=== PATIENT | female | born 1965 | race Caucasian/White ===

== ENCOUNTER → 2019-02-24 | Outpatient (CLI) | payer OTHER ==
--- NOTE | 2019-02-24 15:01 | Diagnostic Imaging Report ---
PROCEDURE: MRI lumbar spine. TECHNIQUE: Multiplanar, multisequence MRI of the lumbar spine was performed without contrast. INDICATION: Low back pain. COMPARISON: No prior studies are available for comparison. FINDINGS: Curvature and alignment of the lumbar spine is normal. Vertebral body heights are maintained. The marrow signal intensity is unremarkable. No geographic marrow lesion or acute compression fracture is seen. There is some mild loss of height and signal intensity to the L5-S1 intervertebral disc compatible with degenerative disc disease. Remaining lumbar discs show fairly normal height and hydration. The conus is unremarkable at the L1-2 level. T12-L1: Central canal is widely patent. Neural foramina are patent. L1-2: Central canal and neural foramina are widely patent. L2-3: Central canal and neural foramina are widely patent. L3-4: There is mild ligamentous thickening and facet changes but central canal and neural foramina are widely patent. L4-5: Ligamentous thickening and facet hypertrophy is noted. There is broad-based disc/osteophyte complex indenting the ventral thecal sac. Moderate central canal stenosis is noted narrowing the canal to 7 mm AP. No neural foraminal stenosis is seen. L5-S1: Marked hypertrophic facet changes and ligamentous thickening is seen with prominent broad-based disc/osteophyte complex. This produces severe trefoil stenosis to the central canal. There is severe bilateral lateral recess stenosis. There is also mild bilateral neural foraminal stenosis. Paraspinous tissues are unremarkable. IMPRESSION: 1. Severe L5-S1 degenerative disc disease with severe central canal and bilateral lateral recess stenosis and mild bilateral neural foraminal stenosis. 2. Moderate central canal stenosis at L4-5 level, as described. 3. No acute compression fracture is detected. Dictated by: Dictated on workstation # [id number]
== END ==
LOC: RAD 13:35
PROVIDERS: ATTEND Family Medicine
DX: M51.37 Other intervertebral disc degeneration, lumbosacral region (principal); M48.07 Spinal stenosis, lumbosacral region
CPT/HCPCS: 72148

== ENCOUNTER → 2021-03-28 | Outpatient (CLI) | payer OTHER ==
--- NOTE | 2021-03-28 17:28 | Diagnostic Imaging Report ---
EXAMINATION: Right ankle 2 views HISTORY: ANKLE AND KNEE PAIN COMPARISON: None available. FINDINGS: There is no acute fracture, dislocation, or destructive osseous process. The joint spaces are normal. The soft tissues are normal. IMPRESSION: No acute osseous abnormality of the right ankle. Dictated by: Dictated on workstation # [id number]
--- NOTE | 2021-03-28 17:28 | Diagnostic Imaging Report ---
EXAM: Right knee radiograph. Exam date: 03/28/2021 COMPARISON: None. HISTORY: Right knee pain. TECHNIQUE: Two views of the right knee. FINDINGS: There is no acute fracture, dislocation, or destructive osseous process. There is minimal medial compartment joint space narrowing and small osteophytes. No significant joint effusion. Soft tissues are normal. IMPRESSION: Mild degenerative changes of the right knee without acute osseous abnormality. Dictated by: Dictated on workstation # [id number]
== END ==
LOC: RAD FS 16:54
PROVIDERS: ATTEND Family Medicine
DX: M17.11 Unilateral primary osteoarthritis, right knee (principal); M25.571 Pain in right ankle and joints of right foot
CPT/HCPCS: 73560; 73600

== ENCOUNTER 2022-03-07 16:36 | Emergency (ER) | payer OTHER ==
[2022-03-07] MEDS ORDERED: KETOROLAC 30 MG/ML VIAL IVP STA (17:02)
[2022-03-07] MEDS ORDERED: PREGABALIN 25 MG (LYRICA) CAPSULE PO STA (17:06)
--- NOTE | 2022-03-07 17:06 | ED General ---
General Chief Complaint: COVID19 Suspect/Confirmed Stated Complaint: CHILLS,RUNNING NOSE,SORE THROAT Nursing Triage Note: REPORTS WAS EXPOSED TO COVID WHILE ON VACATION AND NOW HAS BEEN SICK FOR THE PAST 4 DAYS WITH NASAL CONGESTION, HEADACHE, SORE THROAT, AND CHILLS. SHE ALSO STATES SHE IS WITHDRAWING FROM HER LYRICA BECAUSE SHE HAS NOT HAD IT IN 2 DAYS BC SHE IS [facility]IT[facility] Source of Information: Patient History of Present Illness Date Seen by Provider: Mar 07, 2022 Time Seen by Provider: 16:42 Initial Comments 57-year-old female presenting with complaints of thinking she may have COVID. She was exposed to family members that they will have COVID when she was in [place] last week. She states she has been sick for the last 3 to 4 days with nasal congestion, headache, sore throat, chills. She also has been having diarrhea. She also has not had her Lyrica for the last 2 or 3 days. She states that she ordered it on the but it has not arrived yet. She takes it for her fibromyalgia and sciatica. She takes 300 mg twice a day. She feels like she is going through withdrawal from that. She had called [facility] [place] where she gets her medications and they had advised her to go to the emergency department rather than trying to get her short supply of the medication. She states overall she just does not feel well. She denies having any nausea or vomiting. She has headache with general malaise. Timing/Duration: 3-4 Days Severity: Severe Modifying Factors: worse with Movement (activity makes her feel worse); improves with Rest (resting helps some but she still feels miserable) Associated Systoms: No Chest Pain; Cough; No Diaphoresis; Fever/Chills (chills with subjective fever), Headaches, Loss of Appetite, Malaise; No Nausea/Vomiting, No Rash, No Seizure; Shortness of Air; No Syncope; Weakness, Other (itching all over, diarrhea) Allergies and Home Medications Allergies Coded Allergies: No Known Drug Allergies (Unverified , 03/07/22) Patient Home Medication List Home Medication List Reviewed: Yes Pregabalin (Pregabalin) 300 Mg Capsule, 300 MG PO BID Prescribed by: PRISCILA STEPHENSON on 03/07/22 3156 Review of Systems Review of Systems Constitutional: chills, fever (subjective), malaise, weakness EENTM: nose congestion, throat pain; No ear pain, No vision loss, No epistaxis Respiratory: cough, short of breath; No stridor, No wheezing Cardiovascular: No chest pain Gastrointestinal: diarrhea; No nausea, No vomiting Genitourinary: No dysuria Musculoskeletal: other (chronic body aches and pains from Fibromyalgia and sciatica but feels it is worse currently) Skin: pruritus (generalized itching); No rash Psychiatric/Neurological: Headache Past Vpgurcd-Dwhulw-Dwkbal Hx Patient Social History Tobacco Use?: No Use of E-Cig and/or Vaping dev: No Substance use?: No Alcohol Use?: No Pt feels they are or have been: No Immunizations Up To Date First/Initial COVID19 Vaccinat: 2020 Second COVID19 Vaccination Thanh: 2020 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 oz. 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 Skin: Normal Color, Warm/Dry Progress/Results/Core Measures Suspected Sepsis SIRS Temperature: Pulse: 73 Respiratory Rate: 18 Laboratory Tests 03/07/22 17:07: White Blood Count 6.5 Blood Pressure 146 /76 Mean: 99 Laboratory Tests 03/07/22 17:07: Creatinine 0.62, Platelet Count 288, Total Bilirubin 0.4 Results/Orders Lab Results Laboratory Tests Test 03/07/22 16:45 03/07/22 17:07 Range/Units Influenza Type A (RT-PCR) Not Detected Not Detecte Influenza Type B (RT-PCR) Not Detected Not Detecte SARS-CoV-2 RNA (RT-PCR) Detected H Not Detecte White Blood Count 6.5 4.3-11.0 10^3/uL Red Blood Count 3.88 3.80-5.11 10^6/uL Hemoglobin 12.3 11.5-16.0 g/dL Hematocrit 35 35-52 % Mean Corpuscular Volume 89 80-99 fL Mean Corpuscular Hemoglobin 32 25-34 pg Mean Corpuscular Hemoglobin Concent 36 32-36 g/dL Red Cell Distribution Width 11.2 10.0-14.5 % Platelet Count 288 130-400 10^3/uL Mean Platelet Volume 9.7 9.0-12.2 fL Immature Granulocyte % (Auto) 0 % Neutrophils (%) (Auto) 56 42-75 % Lymphocytes (%) (Auto) 32 12-44 % Monocytes (%) (Auto) 7 0-12 % Eosinophils (%) (Auto) 4 0-10 % Basophils (%) (Auto) 1 0-10 % Neutrophils # (Auto) 3.6 1.8-7.8 10^3/uL Lymphocytes # (Auto) 2.1 1.0-4.0 10^3/uL Monocytes # (Auto) 0.4 0.0-1.0 10^3/uL Eosinophils # (Auto) 0.3 0.0-0.3 10^3/uL Basophils # (Auto) 0.1 0.0-0.1 10^3/uL Immature Granulocyte # (Auto) 0.0 0.0-0.1 10^3/uL Sodium Level 137 135-145 MMOL/L Potassium Level 3.5 L 3.6-5.0 MMOL/L Chloride Level 99 98-107 MMOL/L Carbon Dioxide Level 27 21-32 MMOL/L Anion Gap 11 5-14 MMOL/L Blood Urea Nitrogen 12 7-18 MG/DL Creatinine 0.62 0.60-1.30 MG/DL Estimat Glomerular Filtration Rate 103 BUN/Creatinine Ratio 19 Glucose Level 113 H 70-105 MG/DL Calcium Level 10.1 8.5-10.1 MG/DL Corrected Calcium 8.5-10.1 MG/DL Total Bilirubin 0.4 0.1-1.0 MG/DL Aspartate Amino Transf (AST/SGOT) 22 5-34 U/L Alanine Aminotransferase (ALT/SGPT) 31 0-55 U/L Alkaline Phosphatase 61 40-136 U/L C-Reactive Protein < 0.30 <0.50 MG/DL Total Protein 7.2 6.4-8.2 GM/DL Albumin 4.8 H 3.2-4.5 GM/DL My Orders Orders - PRISCILA STEPHENSON MD Monitor-Rhythm Ecg Trace Only (03/07/22 17:02) Ed Iv/Invasive Line Start (03/07/22 17:02) Cbc With Automated Diff (03/07/22 17:02) Comprehensive Metabolic Panel (03/07/22 17:02) Crp Fs (03/07/22 17:02) Ns Iv 1000 Ml (Sodium Chloride 0.9%) (03/07/22 17:15) Acetaminophen Tablet/Caplet (Tylenol T (03/07/22 17:15) Ketorolac Injection (Toradol Injection) (03/07/22 17:02) Dexamethasone Injection (Decadron Inje (03/07/22 17:02) Covid 19 Inhouse Test (03/07/22 17:02) Influenza A And B By Pcr (03/07/22 17:02) Isolation Central Supply Req (03/07/22 17:02) Pregabalin Capsule (Lyrica Capsule) (03/07/22 17:06) Rx-Nirmatrelvir/Ritonavir(Eua) (Rx-Paxlo (03/07/22 17:48) Rx-Nirmatrelvir/Ritonavir(Eua) (Rx-Paxlo (03/07/22 18:30) Medications Given in ED Current Medications Medications Dose Ordered Sig/José Miguel Route Start Time Stop Time Status Last Admin Dose Admin Acetaminophen 650 mg ONCE ONCE PO 03/07/22 17:15 03/07/22 17:16 DC 03/07/22 17:11 650 MG Vital Signs/I&O 03/07/22 03/07/22 16:45 18:14 Temp 37.0 36.5 Pulse 73 76 Resp 18 16 B/P (MAP) 146/76 (99) 132/51 Pulse Ox 98 97 O2 Delivery Room Air Room Air Capillary Refill : Less Than 3 Seconds Blood Pressure Mean: 99 Progress Note #1: Progress Note Check Covid/Flu swab and basic labs. Give NS 1 L IVF bolus for hydration, Toradol 30 mg IV for headache and body pain, Dexamethasone 6 mg IV for body aches and itching. Will prescribe a short supply of Lyrica since her PCP did not do that to hopefully cover her until her regular medicine arrives through the [facility] from [place]. Discussed option of Paxlovid with patient since she has obesity, htn, DM but is not hypoxic or meeting criteria for admit. Offered to provide information sheet for review if she would like to consider taking it but pt states she would defer to whatever we think is best. Will wait to see what her test shows and review possible risk vs benefit in her situation. Progress Note #2: Progress Note Labs appear stable without acute significant abnormality on CBC or chemistry. She is positive for COVID but negative for influenza. Her vital signs remained stable without acute change. She remains well oxygenated at 97 to 98% on room air. She states that she is feeling better after treatment in the ED. Counseled on emergency use authorization of Paxil evaluated and given handout and fact sheet about the medication. Patient was agreeable to taking the medicine so a take-home pack of the medication was supplied to her. She was discharged to home in improved condition and counseled on follow-up and return precautions. A prescription for Lyrica 300 mg twice daily had been sent to [facility] so that she had a weeks worth of medicine to help cover her until her prescription arrived from the [facility]. Departure Impression Primary Impression: COVID-19 virus infection Additional Impression: Medication withdrawal Qualified Codes: F19.939 - Other psychoactive substance use, unspecified with withdrawal, unspecified Disposition: 01 HOME, SELF-CARE Condition: Improved Departure-Patient Inst. Decision time for Depature: 18:13 Referrals: BRANDY SHORE MD (PCP/Family) Primary Care Physician Patient Instructions: Nirmatrelvir and Ritonavir FDA Fact Sheet, COVID-19 After You Have Been Vaccinated, Drug Withdrawal ED Add. Discharge Instructions: Stay well-hydrated and drink plenty of fluids. Take the Paxil bid 1 pill twice a day for the next 5 days. This will help to work with your body to fight the COVID virus. You should quarantine for the next 3 days and wear a mask. After that you should wear the mask for an additional 5 days. If you still have symptoms at the end of this. You should continue to wear a mask when around others. Use acetaminophen or ibuprofen if needed for body aches and pain. This will help with fever and chills as well as headache as well. For congestion and cough you could use Mucinex or guaifenesin. Make sure to use the plain Mucinex or guaifenesin as the medicine with additional letters can raise your blood pressure. You could take Coricidin for your cough and cold symptoms related to Covid as this medicine will not raise your blood pressure or interact with your other medicines. Restart your Pregabalin (Lyrica) as soon as possible. All discharge instructions reviewed with patient and/or family. Voiced understanding. Scripts Pregabalin (Pregabalin) 300 Mg Capsule 300 MG PO BID for Sciatica/Fibromyalgia for 7 Days, #14 CAP 0 Refills Prov: PRISCILA STEPHENSON MD 03/07/22 PRISCILA STEPHENSON MD Mar 07, 2022 17:06
[2022-03-07 17:11] LABS: BASOPHILS # (AUTO) 0.1 10^3/uL (0.0-0.1); BASOPHILS % (AUTO) 1 % (0-10); EOSINOPHILS # (AUTO) 0.3 10^3/uL (0.0-0.3); EOSINOPHILS % (AUTO) 4 % (0-10); HEMATOCRIT 35 % (35-52); HEMOGLOBIN 12.3 g/dL (11.5-16.0); LYMPHOCYTES # (AUTO) 2.1 10^3/uL (1.0-4.0); LYMPHOCYTES % (AUTO) 32 % (12-44); MEAN CORPUSCULAR HEMOGLOBIN 32 pg (25-34); MEAN CORPUSCULAR HGB CONC 36 g/dL (32-36); MEAN CORPUSCULAR VOLUME 89 fL (80-99); MEAN PLATELET VOLUME 9.7 fL (9.0-12.2); MONOCYTES # (AUTO) 0.4 10^3/uL (0.0-1.0); MONOCYTES % (AUTO) 7 % (0-12); NEUTROPHILS # (AUTO) 3.6 10^3/uL (1.8-7.8); NEUTROPHILS % (AUTO) 56 % (42-75); PLATELET COUNT 288 10^3/uL (130-400); WHITE BLOOD COUNT 6.5 10^3/uL (4.3-11.0)
[2022-03-07] MEDS ORDERED: ACETAMINOPHEN 325 MG TABLET PO ONE (17:15)
[2022-03-07] MEDS ORDERED: NS IV 1000 ML 1,000 ML IV SCH (17:15)
[2022-03-07] MEDS ORDERED: PREG300C19 PO (17:31)
[2022-03-07 17:33] LABS: BUN/CREATININE RATIO 19; CARBON DIOXIDE 27 MMOL/L (21-32); CHLORIDE 99 MMOL/L (98-107); CREATININE SERUM 0.62 MG/DL (0.60-1.30); GFR ESTIMATED 103; POTASSIUM 3.5 MMOL/L (3.6-5.0); SODIUM 137 MMOL/L (135-145)
[2022-03-07 17:34] LABS: ALANINE AMINOTRANSFERASE 31 U/L (0-55); ALBUMIN 4.8 GM/DL (3.2-4.5); ALKALINE PHOSPHATASE 61 U/L (40-136); BILIRUBIN,TOTAL 0.4 MG/DL (0.1-1.0); CALCIUM 10.1 MG/DL (8.5-10.1); GLUCOSE 113 MG/DL (70-105); TOTAL PROTEIN 7.2 GM/DL (6.4-8.2)
[2022-03-07] MEDS ORDERED: RX-NIRMATRELVIR/RITONAVIR (PAXLOVID) #30 TABS PO ONE (17:48)
[2022-03-07 18:14] VITALS: BP 132/51
[2022-03-07] MEDS ORDERED: RX-NIRMATRELVIR/RITONAVIR (PAXLOVID) #30 TABS PO SCH (18:30)
== END 2022-03-07 18:19 | disposition home or self-care (01) ==
LOC: EDUNIT# 16:36 → ER FS 16:38
DX: U07.1 COVID-19 (principal); F15.23 Other stimulant dependence with withdrawal
CPT/HCPCS: 36415; 80053; 85025; 86141; 87636; 93041

== ENCOUNTER 2022-05-17 16:24 | Day surgery (SDC) | payer OTHER ==
[~2022-05-17] VITALS: Ht 157.5 cm; Wt 93.3 kg
[~2022-05-17 16:24] MED LIST: PREG300C19 PO
[2022-05-17] MEDS ORDERED: morphine INJ 10 MG/ML 1ML (SYR OR VIAL) IVP STA (17:17)
[2022-05-17 17:22] LABS: BASOPHILS % (AUTO) 0 % (0-10); EOSINOPHILS # (AUTO) 0.1 10^3/uL (0.0-0.3); EOSINOPHILS % (AUTO) 1 % (0-10); HEMATOCRIT 35 % (35-52); LYMPHOCYTES # (AUTO) 2.5 10^3/uL (1.0-4.0); LYMPHOCYTES % (AUTO) 23 % (12-44); MEAN CORPUSCULAR HEMOGLOBIN 32 pg (25-34); MEAN CORPUSCULAR HGB CONC 34 g/dL (32-36); MEAN CORPUSCULAR VOLUME 92 fL (80-99); MEAN PLATELET VOLUME 10.4 fL (9.0-12.2); MONOCYTES # (AUTO) 0.8 10^3/uL (0.0-1.0); MONOCYTES % (AUTO) 7 % (0-12); NEUTROPHILS # (AUTO) 7.1 10^3/uL (1.8-7.8); NEUTROPHILS % (AUTO) 67 % (42-75); PLATELET COUNT 266 10^3/uL (130-400); WHITE BLOOD COUNT 10.5 10^3/uL (4.3-11.0)
[2022-05-17 17:23] LABS: BILIRUBIN,URINE NEGATIVE (NEGATIVE); CLARITY,URINE CLEAR; COLOR,URINE YELLOW; GLUCOSE, URINE (UA) NEGATIVE (NEGATIVE); KETONES,URINE TRACE (NEGATIVE); LEUKOCYTE ESTERASE ,URINE NEGATIVE (NEGATIVE); NITRITE,URINE NEGATIVE (NEGATIVE); PROTEIN,URINE NEGATIVE (NEGATIVE)
[2022-05-17 17:29] LABS: ALBUMIN 4.5 GM/DL (3.2-4.5); BILIRUBIN,TOTAL 0.5 MG/DL (0.1-1.0); CALCIUM 9.6 MG/DL (8.5-10.1); CREATININE SERUM 0.66 MG/DL (0.60-1.30); POTASSIUM 3.7 MMOL/L (3.6-5.0); TOTAL PROTEIN 7.3 GM/DL (6.4-8.2)
[2022-05-17 17:30] LABS: BACTERIA,URINE FEW /HPF; RBC,URINE 0-2 /HPF
[2022-05-17] MEDS ORDERED: ONDANSETRON 4 MG/2 ML (SDV) Z0FRAN IVP ONE (17:30)
[2022-05-17] MEDS: CATHETER FLUSH 10 ML SYR IV PRN (18:10)
[2022-05-17] MEDS ORDERED: CATHETER FLUSH 10 ML SYR IV PRN (18:15)
[2022-05-17] MEDS ORDERED: HOLD METFORMIN - RECEIVED CONTRAST 20 ML VIAL IV SCH ×2 (18:15)
[2022-05-17] MEDS ORDERED: IOHEXOL 350 MG/ML 100 ML (OMNIPAQUE 350) VIAL IV ONE ×2 (18:15)
[2022-05-17] MEDS ORDERED: NS 100 ML (IVPB) BAG IV ONE ×2 (18:15)
--- NOTE | 2022-05-17 18:42 | Diagnostic Imaging Report ---
PROCEDURE: CT abdomen and pelvis with contrast, rule out appendicitis. TECHNIQUE: Multiple contiguous axial images were obtained through the abdomen and pelvis after the administration of intravenous contrast. All CT scans use one or more of the following dose optimizing techniques: automated exposure control, MA and/or KvP adjustment based on patient size and exam type or iterative reconstruction. INDICATION: Right lower quadrant abdominal pain. COMPARISON: None. FINDINGS: Thick-walled edematous appendix measuring up 1.5 cm in diameter containing appendicolith. There are also adjacent inflammatory changes in the mesentery. No fluid collection to suggest abscess. No evidence of perforation. Cholecystectomy. Hysterectomy. The lung bases are clear. The liver, pancreas, spleen, adrenals, right kidney, collecting systems and bladder are negative. Nonobstructing calyceal tip renal stone in the lower pole of the left kidney measures up to 1.0 cm. No evidence of bowel obstruction. No lymphadenopathy. Mild atherosclerotic calcifications. No acute osseous finding. Moderate spondylotic and scoliotic changes in the lumbar spine. IMPRESSION: CT findings consistent with acute uncomplicated appendicitis. No evidence of perforation or abscess. Dictated by: Dictated on workstation # [id number]
[2022-05-17] MEDS ORDERED: PIPERACILLIN SODIUM/TAZOBACTAM 4.5 GM in NS (IVPB) 100 ML IV ONE (19:15)
--- NOTE | 2022-05-17 19:17 | ED Abdominal Pain ---
General Chief Complaint: Abdominal/GI Problems Stated Complaint: LOWER R ABD PAIN Nursing Triage Note: Patient has presented to ER with cc of lower right side abd pain that started 2 days ago. Today she reports a generalized cramping in her abd. She has a decreased appetite. She has not taken anything for the pain. She did state that for 2 days earlier in the week she did not take her lyrica but started taking it on Friday - she was unsure if this would cause her to have stomach pain. She states that she is concerned about her appendix. Source of Information: Patient Exam Limitations: No Limitations History of Present Illness Date Seen by Provider: May 17, 2022 Time Seen by Provider: 18:00 Initial Comments Patient is a 57-year-old female who presents with right lower quadrant pain for the past 2 days. Patient reports generalized abdominal cramping with localization to the right lower quadrant. She reports decreased appetite and oral intake. She has not taken any pain medication. She denies flank pain, urinary frequency urgency dysuria. Pain is moderate to severe worse with palpation and movement is partially improved with rest. No other acute symptoms or complaints Timing/Duration: 2-3 Days Severity/Quality: Other Location: Other Radiation: Other Modifying Factors: Improves With Other Associated Symptoms: Other Allergies and Home Medications Allergies Coded Allergies: No Known Drug Allergies (Unverified , 03/07/22) Patient Home Medication List Home Medication List Reviewed: Yes Pregabalin (Pregabalin) 300 Mg Capsule, 300 MG PO BID Prescribed by: PRISCILA STEPHENSON on 03/07/22 1731 Review of Systems Review of Systems Constitutional: see HPI EENTM: See HPI Respiratory: See HPI Cardiovascular: See HPI Gastrointestinal: See HPI Genitourinary: See HPI Musculoskeletal: see HPI Skin: see HPI Psychiatric/Neurological: See HPI Endocrine: See HPI Hematologic/Lymphatic: See HPI All Other Systems Reviewed Negative Unless Noted: No Past Wegbupm-Zxeoou-Vqbfse Hx Patient Social History Tobacco Use?: No Use of E-Cig and/or Vaping dev: No Substance use?: No Alcohol Use?: No Immunizations Up To Date First/Initial COVID19 Vaccinat: 2020 Second COVID19 Vaccination Thanh: 2020 Past Medical History Surgery/Hospitalization HX: SCIATICA FIBROMYALGIA HTN DIABETES Physical Exam Vital Signs Vital Signs - First Documented 05/17/22 16:54 Temp 37.0 Pulse 88 Resp 20 B/P (MAP) 121/71 (88) Pulse Ox 97 O2 Delivery Room Air Capillary Refill : Height/Weight/BMI Height: '" Weight: lbs. oz. kg; 37.00 BMI Method: General Appearance: WD/WN, no apparent distress Respiratory: lungs clear Cardiovascular: normal peripheral pulses Gastrointestinal: soft, tenderness (RLQ pain/ttp) Extremities: normal range of motion Back: no CVA tenderness Neurologic/Psychiatric: no motor/sensory deficits, alert, oriented x 3 Progress/Results/Core Measures Results/Orders Lab Results Laboratory Tests Test 05/17/22 16:30 05/17/22 16:50 Range/Units Urine Color YELLOW Urine Clarity CLEAR Urine pH 5.0 5-9 Urine Specific [place] 1.015 L 1.016-1.022 Urine Protein NEGATIVE NEGATIVE Urine Glucose (UA) NEGATIVE NEGATIVE Urine Ketones TRACE H NEGATIVE Urine Nitrite NEGATIVE NEGATIVE Urine Bilirubin NEGATIVE NEGATIVE Urine Urobilinogen 0.2 < = 1.0 MG/DL Urine Leukocyte Esterase NEGATIVE NEGATIVE Urine RBC (Auto) NEGATIVE NEGATIVE Urine RBC 0-2 /HPF Urine WBC NONE /HPF Urine Squamous Epithelial Cells 10-25 H /HPF Urine Crystals NONE /LPF Urine Bacteria FEW H /HPF Urine Casts NONE /LPF Urine Mucus LARGE H /LPF Urine Culture Indicated NO White Blood Count 10.5 4.3-11.0 10^3/uL Red Blood Count 3.81 3.80-5.11 10^6/uL Hemoglobin 12.0 11.5-16.0 g/dL Hematocrit 35 35-52 % Mean Corpuscular Volume 92 80-99 fL Mean Corpuscular Hemoglobin 32 25-34 pg Mean Corpuscular Hemoglobin Concent 34 32-36 g/dL Red Cell Distribution Width 11.6 10.0-14.5 % Platelet Count 266 130-400 10^3/uL Mean Platelet Volume 10.4 9.0-12.2 fL Immature Granulocyte % (Auto) 0 % Neutrophils (%) (Auto) 67 42-75 % Lymphocytes (%) (Auto) 23 12-44 % Monocytes (%) (Auto) 7 0-12 % Eosinophils (%) (Auto) 1 0-10 % Basophils (%) (Auto) 0 0-10 % Neutrophils # (Auto) 7.1 1.8-7.8 10^3/uL Lymphocytes # (Auto) 2.5 1.0-4.0 10^3/uL Monocytes # (Auto) 0.8 0.0-1.0 10^3/uL Eosinophils # (Auto) 0.1 0.0-0.3 10^3/uL Basophils # (Auto) 0.0 0.0-0.1 10^3/uL Immature Granulocyte # (Auto) 0.0 0.0-0.1 10^3/uL Sodium Level 137 135-145 MMOL/L Potassium Level 3.7 3.6-5.0 MMOL/L Chloride Level 98 98-107 MMOL/L Carbon Dioxide Level 25 21-32 MMOL/L Anion Gap 14 5-14 MMOL/L Blood Urea Nitrogen 16 7-18 MG/DL Creatinine 0.66 0.60-1.30 MG/DL Estimat Glomerular Filtration Rate 101 BUN/Creatinine Ratio 24 Glucose Level 118 H 70-105 MG/DL Calcium Level 9.6 8.5-10.1 MG/DL Corrected Calcium 9.2 8.5-10.1 MG/DL Total Bilirubin 0.5 0.1-1.0 MG/DL Aspartate Amino Transf (AST/SGOT) 16 5-34 U/L Alanine Aminotransferase (ALT/SGPT) 23 0-55 U/L Alkaline Phosphatase 67 40-136 U/L Total Protein 7.3 6.4-8.2 GM/DL Albumin 4.5 3.2-4.5 GM/DL My Orders Orders - STEPHANY FLORES DO Cbc With Automated Diff (05/17/22 17:17) Comprehensive Metabolic Panel (05/17/22 17:17) Ct Abd/Pelv W (Appendicitis) (05/17/22 17:17) Ua Culture If Indicated (05/17/22 17:17) Morphine Injection (Morphine Injection (05/17/22 17:17) Ondansetron Injection (Zofran Injectio (05/17/22 17:30) Iohexol Injection (Omnipaque 350 Mg/Ml 1 (05/17/22 18:15) Received Contrast (Hold Metformin- Contr (05/17/22 18:15) Sodium Chloride Flush (Catheter Flush Sy (05/17/22 18:15) Ns (Ivpb) (Sodium Chloride 0.9% Ivpb Bag (05/17/22 18:15) Iohexol Injection (Omnipaque 350 Mg/Ml 1 (05/17/22 18:15) Received Contrast (Hold Metformin- Contr (05/17/22 18:15) Sodium Chloride Flush (Catheter Flush Sy (05/17/22 18:15) Ns (Ivpb) (Sodium Chloride 0.9% Ivpb Bag (05/17/22 18:15) Piperacillin Sodium/Tazobactam (Zosyn Vi (05/17/22 19:15) Medications Given in ED Current Medications Medications Dose Ordered Sig/José Miguel Route Start Time Stop Time Status Last Admin Dose Admin Iohexol 100 ml ONCE ONCE IV 05/17/22 18:15 05/17/22 18:16 DC 05/17/22 18:09 80 ML Iohexol 100 ml ONCE ONCE IV 05/17/22 18:15 05/17/22 18:16 DC 05/17/22 18:10 100 ML Ondansetron HCl 4 mg ONCE ONCE IVP 05/17/22 17:30 05/17/22 17:31 DC 05/17/22 17:33 4 MG Sodium Chloride 10 ml NEEDED PRN IV 05/17/22 18:15 05/17/22 18:10 10 ML Sodium Chloride 100 ml ONCE ONCE IV 05/17/22 18:15 05/17/22 18:16 DC 05/17/22 18:09 100 ML Sodium Chloride 100 ml ONCE ONCE IV 05/17/22 18:15 05/17/22 18:16 DC 05/17/22 18:10 100 ML Vital Signs/I&O 05/17/22 16:54 Temp 37.0 Pulse 88 Resp 20 B/P (MAP) 121/71 (88) Pulse Ox 97 O2 Delivery Room Air Blood Pressure Mean: 88 Departure Communication (Admissions) CT abdomen pelvis: Acute appendicitis without perforation or abscess per radiology report. CT findings of appendicitis. Pain addressed, initial antibiotics given. Dr. Dupont accepts too his service. Impression Primary Impression: Acute appendicitis Disposition: ADMITTED INPATIENT Condition: Stable Admissions Decision to Admit Reason: Admit from ER (General) Decision to Admit/Date: May 17, 2022 Time/Decision to Admit Time: 19:18 Transfer Transfer Reason: Patient preference Time Spoke to Accepting Phy: 19:18 (Dr. Dupont) Departure-Patient Inst. Referrals: BRANDY SHORE MD (PCP/Family) Primary Care Physician STEPHANY FLORES DO May 17, 2022 19:17
[2022-05-17] MEDS ORDERED: morphine INJ 10 MG/ML 1ML (SYR OR VIAL) ONE (20:35)
[2022-05-17] MEDS ORDERED: morphine INJ 4 MG/ML 1 ML (VIAL/SYRINGE) IV PRN (21:30)
[2022-05-17] MEDS ORDERED: PATIENT MAY USE OWN MEDS, ALL PO SCH (21:30)
[2022-05-17] MEDS ORDERED: NALOXONE 0.4 MG/ML 1 ML (NARCAN) VIAL IV PRN (21:30)
[2022-05-17] MEDS ORDERED: D5 NS 1000 ML IV SOLUTION 1,000 ML IV ONE (21:38)
[2022-05-17 21:39] VITALS: BP 121/71
[2022-05-17 21:44] VITALS: BP 107/64
[2022-05-17] MEDS ORDERED: RT-ALBUTEROL SULF 2.5 MG/3 ML PRE-MIX VIAL INH PRN (21:45)
[2022-05-17] MEDS ORDERED: ONDANSETRON 4 MG/2 ML (SDV) Z0FRAN IV PRN (22:00)
[2022-05-17] MEDS: D5 NS 1000 ML IV SOLUTION 1,000 ML IV SCH (22:07)
[2022-05-17] MEDS: PIPERACILLIN SODIUM/TAZOBACTAM 4.5 GM in NS (IVPB) 100 ML IV SCH (23:35)
[2022-05-17] MEDS: ACETAMINOPHEN 500 MG TAB (TYLENOL) PO SCH (23:35)
[2022-05-17] MEDS: KETOROLAC 15 MG/ML VIAL IV SCH (23:35)
[2022-05-17 23:41] VITALS: BP 108/55
[2022-05-18] VITALS (9 sets, daily range): BP systolic 97–143; BP diastolic 52–78
[2022-05-18 04:57] LABS: BASOPHILS # (AUTO) 0.1 10^3/uL (0.0-0.1); BASOPHILS % (AUTO) 1 % (0-10); EOSINOPHILS # (AUTO) 0.2 10^3/uL (0.0-0.3); EOSINOPHILS % (AUTO) 2 % (0-10); HEMATOCRIT 33 % (35-52); HEMOGLOBIN 10.8 g/dL (11.5-16.0); LYMPHOCYTES # (AUTO) 1.6 10^3/uL (1.0-4.0); LYMPHOCYTES % (AUTO) 20 % (12-44); MEAN CORPUSCULAR HEMOGLOBIN 31 pg (25-34); MEAN CORPUSCULAR HGB CONC 33 g/dL (32-36); MEAN CORPUSCULAR VOLUME 95 fL (80-99); MEAN PLATELET VOLUME 10.2 fL (9.0-12.2); MONOCYTES # (AUTO) 0.8 10^3/uL (0.0-1.0); MONOCYTES % (AUTO) 10 % (0-12); NEUTROPHILS # (AUTO) 5.7 10^3/uL (1.8-7.8); NEUTROPHILS % (AUTO) 68 % (42-75); PLATELET COUNT 245 10^3/uL (130-400); WHITE BLOOD COUNT 8.4 10^3/uL (4.3-11.0)
[2022-05-18 05:08] LABS: ALBUMIN 3.8 GM/DL (3.2-4.5); POTASSIUM 3.6 MMOL/L (3.6-5.0)
[2022-05-18 05:10] LABS: CALCIUM 9.1 MG/DL (8.5-10.1)
[2022-05-18 05:11] LABS: TOTAL PROTEIN 6.6 GM/DL (6.4-8.2)
[2022-05-18 05:13] LABS: BILIRUBIN,TOTAL 0.8 MG/DL (0.1-1.0)
[2022-05-18 05:15] LABS: CREATININE SERUM 0.81 MG/DL (0.60-1.30)
[2022-05-18] MEDS: KETOROLAC 15 MG/ML VIAL IV SCH ×2 (05:40→12:00)
[2022-05-18] MEDS: ACETAMINOPHEN 500 MG TAB (TYLENOL) PO SCH ×2 (05:41→12:00)
[2022-05-18] MEDS: D5 NS 1000 ML IV SOLUTION 1,000 ML IV SCH ×2 (06:11→08:17)
[2022-05-18] MEDS: PIPERACILLIN SODIUM/TAZOBACTAM 4.5 GM in NS (IVPB) 100 ML IV SCH (08:14)
[2022-05-18] MEDS ORDERED: FLU QUADRIvalent (6 months+) 60 mcg/0.5 ml 2022-23 (Fluzone) IM ONE (08:15)
--- NOTE | 2022-05-18 09:35 | Consultation - Surgery ---
CHRISTINE PAIGE 05/18/22 0935: History of Present Illness History of Present Illness Patient Consulted On(janis/time) 05/18/22 09:29 Time Seen by Provider: 08:00 Reason for Visit: RLQ abdominal pain History of Present Illness Pt is a 57 yo F who presented to the ED yesterday 05/17 after experiencing RLQ abdominal pain for 3 days. Pain began as diffuse then localized to RLQ 2 days ago. This pain has never happened before. She described the pain as crampy at first but is not sharp. Pain is worse with sitting up and better with laying down. She says the pain is constant and currently 5/10 in severity. 10 when patient goes to sit up. She also reports pain on the right side of her vagina. This RLQ pain does not radiate anywhere else. She reported to me that she is scheduled for appendectomy at 10AM today 05/18. Allergies and Home Medications Allergies Coded Allergies: No Known Drug Allergies (Unverified , 03/07/22) Patient Home Medication List Home Medication List Reviewed: Yes Pregabalin (Pregabalin) 300 Mg Capsule, 300 MG PO BID Prescribed by: PRISCILA STEPHENSON on 03/07/22 9780 Past Zdeshxu-Pwripd-Cdvypu Hx Patient Social History Smoking Status: Former Smoker (quit 30 years ago after breif stent of smoking) Alcohol Use?: No Have you traveled recently?: No Surgeries History of Surgeries: Yes (hiatal hernia repair) Surgeries: Gallbladder, Hysterectomy Respiratory History of Respiratory Disorde: Yes (covid in january) Cardiovascular History of Cardiac Disorders: Yes Cardiac Disorders: Hypertension Neurological History of Neurological Disord: Yes (sciatica on left side) Genitourinary History of Genitourinary Disor: No Gastrointestinal Gastrointestinal Disorders: Hiatal Hernia Musculoskeletal Musculoskeletal Disorders: Arthritis (wrist left) Endocrine Endocrine Disorders: Diabetes, Non-Insulin dep Family Medical History Significant Family History: Cancer (breast and leukemia), Hypertension (in mother) Review of Systems-General Constitutional: No diaphoresis, No fever Respiratory: No short of breath, No wheezing Cardiovascular: No chest pain, No palpitations Gastrointestinal: RLQ (pain on palpation), abdominal pain (RLQ); No nausea, No vomiting Genitourinary: No incontinence, No pain Musculoskeletal: No back pain, No neck pain Skin: No dryness, No rash Psychiatric/Neurological: Denies Headache, Denies Weakness Physical Exam-General Problems Physical Exam Vital Signs Vital Signs - First Documented 05/17/22 05/17/22 05/17/22 16:54 21:36 21:39 Temp 37.0 Pulse 88 Resp 20 B/P (MAP) 121/71 (88) Pulse Ox 97 O2 Delivery Room Air O2 Flow Rate 2.00 FiO2 21 Capillary Refill : Less Than 3 Seconds General Appearance: WD/WN, no apparent distress Eyes: Bilateral Eye EOMI HEENT: PERRL/EOMI; No scleral icterus (R), No scleral icterus (L) Neck: non-tender, supple; No lymphadenopathy (R), No lymphadenopathy (L) Respiratory: chest non-tender, lungs clear, normal breath sounds, no respiratory distress, no accessory muscle use Cardiovascular: normal peripheral pulses, regular rate, rhythm, no edema, no murmur Peripheral Pulses: 2+ Radial Pulses (R), 2+ Radial Pulses (L) Gastrointestinal: normal bowel sounds, soft, tenderness (RLQ) Rectal: deferred Back: no CVA tenderness, no vertebral tenderness Extremities: non-tender, no pedal edema; No calf tenderness Neurologic/Psychiatric: alert, oriented x 3; No facial droop Skin: normal color, warm/dry Lymphatic: no adenopathy (cervical) Data Review Labs Laboratory Tests 05/17/22 16:30: Urine Color YELLOW, Urine Clarity CLEAR, Urine pH 5.0, Urine Specific [place] 1.015L, Urine Protein NEGATIVE, Urine Glucose (UA) NEGATIVE, Urine Ketones TRACEH, Urine Nitrite NEGATIVE, Urine Bilirubin NEGATIVE, Urine Urobilinogen 0.2, Urine Leukocyte Esterase NEGATIVE, Urine RBC (Auto) NEGATIVE, Urine RBC 0- 2, Urine WBC NONE, Urine Squamous Epithelial Cells 10-25H, Urine Crystals NONE, Urine Bacteria FEWH, Urine Casts NONE, Urine Mucus LARGEH, Urine Culture Indicated NO 05/17/22 16:50: White Blood Count 10.5, Red Blood Count 3.81, Hemoglobin 12.0, Hematocrit 35, Mean Corpuscular Volume 92, Mean Corpuscular Hemoglobin 32, Mean Corpuscular Hemoglobin Concent 34, Red Cell Distribution Width 11.6, Platelet Count 266, Mean Platelet Volume 10.4, Immature Granulocyte % (Auto) 0, Neutrophils (%) (Auto) 67, Lymphocytes (%) (Auto) 23, Monocytes (%) (Auto) 7, Eosinophils (%) (Auto) 1, Basophils (%) (Auto) 0, Neutrophils # (Auto) 7.1, Lymphocytes # (Auto) 2.5, Monocytes # (Auto) 0.8, Eosinophils # (Auto) 0.1, Basophils # (Auto) 0.0, Immature Granulocyte # (Auto) 0.0, Sodium Level 137, Potassium Level 3.7, Chloride Level 98, Carbon Dioxide Level 25, Anion Gap 14, Blood Urea Nitrogen 16, Creatinine 0.66, Estimat Glomerular Filtration Rate 101, BUN/Creatinine Ratio 24, Glucose Level 118H, Calcium Level 9.6, Corrected Calcium 9.2, Total Bilirubin 0.5, Aspartate Amino Transf (AST/SGOT) 16, Alanine Aminotransferase (ALT/SGPT) 23, Alkaline Phosphatase 67, Total Protein 7.3, Albumin 4.5 05/18/22 04:37: White Blood Count 8.4, Red Blood Count 3.46L, Hemoglobin 10.8L, Hematocrit 33L, Mean Corpuscular Volume 95, Mean Corpuscular Hemoglobin 31, Mean Corpuscular Hemoglobin Concent 33, Red Cell Distribution Width 11.8, Platelet Count 245, Mean Platelet Volume 10.2, Immature Granulocyte % (Auto) 0, Neutrophils (%) (Auto) 68, Lymphocytes (%) (Auto) 20, Monocytes (%) (Auto) 10, Eosinophils (%) (Auto) 2, Basophils (%) (Auto) 1, Neutrophils # (Auto) 5.7, Lymphocytes # (Auto) 1.6, Monocytes # (Auto) 0.8, Eosinophils # (Auto) 0.2, Basophils # (Auto) 0.1, Immature Granulocyte # (Auto) 0.0, Sodium Level 139, Potassium Level 3.6, Chloride Level 102, Carbon Dioxide Level 27, Anion Gap 10, Blood Urea Nitrogen 16, Creatinine 0.81, Estimat Glomerular Filtration Rate 84, BUN/Creatinine Ratio 20, Glucose Level 145H, Calcium Level 9.1, Corrected Calcium 9.3, Total Bilirubin 0.8, Aspartate Amino Transf (AST/SGOT) 72H, Alanine Aminotransferase (ALT/SGPT) 89H, Alkaline Phosphatase 66, Total Protein 6.6, Albumin 3.8 Assessment/Plan Assessment/Plan Assessment/Plan Appendicitis Ct abd/pelvis confirmed appendicitis with apendicolith. RLQ tenderness, non elevated white count, currently on zosyn Hypotension 97/52 this AM Pt reports she is scheduled for surgery today to remove appendix. She has been NPO since last night. Will continue to monitor her status post op. Hypotension can be addressed with normal saline, she is asymptomatic CHARLENE HERNANDEZ DO 05/18/22 1000: History of Present Illness History of Present Illness Time Seen by Provider: 09:42 History of Present Illness Surgery asked to consult regarding RLQ pain and probable appendicitis. HPI per ED: Patient has presented to ER with cc of lower right side abd pain that started 2 days ago. Today she reports a generalized cramping in her abd. She has a decreased appetite. She has not taken anything for the pain. She did state that for 2 days earlier in the week she did not take her lyrica but started taking it on Friday - she was unsure if this would cause her to have stomach pain. She states that she is concerned about her appendix. Patient is a 57-year-old female who presents with right lower quadrant pain for the past 2 days. Patient reports generalized abdominal cramping with localization to the right lower quadrant. She reports decreased appetite and oral intake. She has not taken any pain medication. She denies flank pain, urinary frequency urgency dysuria. Pain is moderate to severe worse with palpation and movement is partially improved with rest. No other acute symptoms or complaints When I spoke to pt this am she was still having some pain, controlled with meds and worse "if I move". She stated the pain started in the middle and at first she thought it was "my hiatal hernia pulling". Allergies and Home Medications Allergies Coded Allergies: No Known Drug Allergies (Unverified , 03/07/22) Patient Home Medication List Home Medication List Reviewed: Yes Pregabalin (Pregabalin) 300 Mg Capsule, 300 MG PO BID Prescribed by: PRISCILA STEPHENSON on 03/07/22 7780 Past Xfpvwhd-Dpmoxc-Nlrvog Hx Patient Social History Smoking Status: Former Smoker (quit 30 years ago after breif stent of smoking) Alcohol Use?: No Surgeries History of Surgeries: Yes (hiatal hernia repair) Surgeries: Gallbladder, Hysterectomy Respiratory History of Respiratory Disorde: Yes (covid in january) Cardiovascular History of Cardiac Disorders: Yes Cardiac Disorders: Hypertension Neurological History of Neurological Disord: Yes (sciatica on left side) Genitourinary History of Genitourinary Disor: No Gastrointestinal History of Gastrointestinal Di: Yes Gastrointestinal Disorders: Hiatal Hernia Musculoskeletal History of Musculoskeletal Dis: Yes Musculoskeletal Disorders: Arthritis (wrist left) Endocrine History of Endocrine Disorders: Yes Endocrine Disorders: Diabetes, Non-Insulin dep HEENT History of HEENT Disorders: No Loss of Vision: Denies Hearing Impairment: Denies Cancer History of Cancer: No Psychosocial History of Psychiatric Problem: No Family Medical History Significant Family History: Heart Disease, Cancer (breast and leukemia - grandmothers), Hypertension (in mother) Review of Systems-General Constitutional: No diaphoresis, No fever EENTM: No blurred vision, No mouth swelling, No epistaxis Respiratory: No short of breath, No wheezing Cardiovascular: No chest pain, No palpitations Gastrointestinal: RLQ (pain on palpation), abdominal pain (RLQ); No nausea, No vomiting Genitourinary: No dysuria, No incontinence Musculoskeletal: No back pain, No neck pain Skin: No dryness, No rash Psychiatric/Neurological: Denies Headache, Denies Weakness Physical Exam-General Problems Physical Exam General Appearance: no apparent distress, obese Eyes: Bilateral Eye PERRL, Bilateral Eye EOMI HEENT: pharynx normal; No scleral icterus (R), No scleral icterus (L) Neck: non-tender, supple Respiratory: lungs clear, normal breath sounds, no respiratory distress, no accessory muscle use Cardiovascular: regular rate, rhythm, no edema, no murmur Gastrointestinal: normal bowel sounds, soft, tenderness (RLQ) Rectal: No deferred Back: no CVA tenderness, no vertebral tenderness Extremities: non-tender, no pedal edema, no calf tenderness Skin: normal color, warm/dry Lymphatic: no adenopathy (neck, axilla or groin) Data Review Radiology Date of Exam:05/17/22 CT ABD/PELV W (APPENDICITIS) PROCEDURE: CT abdomen and pelvis with contrast, rule out appendicitis. TECHNIQUE: Multiple contiguous axial images were obtained through the abdomen and pelvis after the administration of intravenous contrast. All CT scans use one or more of the following dose optimizing techniques: automated exposure control, MA and/or KvP adjustment based on patient size and exam type or iterative reconstruction. INDICATION: Right lower quadrant abdominal pain. COMPARISON: None. FINDINGS: Thick-walled edematous appendix measuring up 1.5 cm in diameter containing appendicolith. There are also adjacent inflammatory changes in the mesentery. No fluid collection to suggest abscess. No evidence of perforation. Cholecystectomy. Hysterectomy. The lung bases are clear. The liver, pancreas, spleen, adrenals, right kidney, collecting systems and bladder are negative. Nonobstructing calyceal tip renal stone in the lower pole of the left kidney measures up to 1.0 cm. No evidence of bowel obstruction. No lymphadenopathy. Mild atherosclerotic calcifications. No acute osseous finding. Moderate spondylotic and scoliotic changes in the lumbar spine. IMPRESSION: CT findings consistent with acute uncomplicated appendicitis. No evidence of perforation or abscess. Dictated by: Dictated on workstation # [id number] Dict: 05/17/221833 Trans: 05/17/221856 PJE [id number] Interpreted by: LES ROBLEDO MD Electronically signed by: LES ROBLEDO MD 05/17/221856 Assessment/Plan Assessment/Plan Assessment/Plan Acute Appendicitis DM Hx of Umbilical hernia repair I reviewed the CT myself and spoke with ED physician;she has a dilated appendix, possible small appendicolith and I think this is early appendicitis. She was admitted, made npo, IV fluids started, pain control and anti-emetics as needed and IV ABX. I talked to her today about Laparoscopic Appendectomy, possible open. We went over risks and complications not limited to pain, bleeding, infection, scar, damage to bowel and need for further procedure. All questions answered to her satisfacti on. Will take her down to the OR for surgery now. Supervisory-Addendum Brief Verification & Attestation Participated in pt care: history, MDM, physical Personally performed: exam, history, MDM, supervision of care Care discussed with: Medical Student Procedures: n/a Verification and Attestation of Medical Student E/M Service A medical student performed and documented this service. I then reviewed and verified all information documented by the medical student and made modifications to such information, when appropriate. I personally performed a physical exam, medical decision making and then discussed any differences betw een the notes and made revisions as necessary to create one note. Charlene Hernandez , 05/18/22 , 10:05 CHRISTINE PAIGE May 18, 2022 09:35 CHARLENE HERNANDEZ DO May 18, 2022 10:00
[2022-05-18] MEDS ORDERED: LIDOCAINE/EPI 2% 1:200,00 (XYLOCAINE) 10 ML VIAL ONE (09:39)
[2022-05-18] MEDS ORDERED: fentaNYL INJ 100 MCG/2 ML AMP IVP ONE (09:45)
[2022-05-18] MEDS ORDERED: ONDANSETRON 4 MG/2 ML (SDV) Z0FRAN IVP PRN (09:45)
[2022-05-18] MEDS ORDERED: morphine INJ 10 MG/ML 1ML (SYR OR VIAL) IVP ONE (09:45)
[2022-05-18] MEDS ORDERED: MEPERIDINE (DEMEROL) INJ 50 MG/ML IVP ONE (09:45)
[2022-05-18] MEDS ORDERED: LIDOCAINE PF 2% 5 ML (XYLOCAINE) VIAL ONE (09:48)
[2022-05-18] MEDS ORDERED: ROCURONIUM 10 MG/ML 5 ML SYRINGE IV ONE (09:48)
[2022-05-18] MEDS ORDERED: MIDAZOLAM 2 MG/2 ML (VERSED) VIAL ONE (09:48)
[2022-05-18] MEDS ORDERED: proPOfol 200 MG/20 ML (DIPRIVAN) VIAL IV ONE (09:48)
[2022-05-18] MEDS ORDERED: SEVOFLURANE (ULTANE) 15 ML INHAL SOLN ONE ×2 (09:48→09:54)
[2022-05-18] MEDS: LACTATED RINGERS 1,000 ML IV PRN ×2 (10:20→11:35)
[2022-05-18] MEDS ORDERED: PHENYLEPHRINE 100 MCG/ML 10 ML (ANESTHESIA) SYR ONE (10:35)
[2022-05-18] MEDS ORDERED: LACTATED RINGERS 1,000 ML IV PRN (11:00)
--- NOTE | 2022-05-18 11:46 | Progress Note-Post Operative ---
Post-Operative Progess Note Surgeon (s)/Manifest/Order Organizer Print Orders (s) Surgeon CHARLENE HERNANDEZ DO Manifest/Order Organizer Print Orders: PATRICK Moran Pre-Operative Diagnosis Acute Appy Post-Operative Diagnosis Same plus adhesions Procedure & Operative Findings Date of Procedure 05/18/22 Procedure Performed/Findings PROCEDURE: Laparoscopic appendectomy. COMPLICATIONS: None. INDICATIONS: The patient is a 57 year old female who has been having right lower quadrant abdominal pain. Patient's exam consistent with appendicitis. I discussed risk and benefits of laparoscopic appendectomy and all indicated procedures with the possibility being a normal appendix. The patient understands the risks and benefits and wishes to proceed. Consent was signed on the chart. DESCRIPTION OF PROCEDURE: The patient was taken to the operating suite, prepped and draped in a sterile f ashion. Timeout was performed. Local anesthetic was infiltrated just above the umbilicus and 11-blade scalpel was used to make a skin incision. Cautery was used to dissect down to the fascia and scored. Kochers were used to grasp and elevate it and the abdomen was then entered. There were some adhesions from previous hernia repair, taken down bluntly and with some cautery. An 0 Vicryl was placed in a [id number] fashion for closure at the end of the case. The balloon trocar was inserted into the abdomen and pneumoperitoneum was achieved. Under direct visualization of the laparoscope, a 5 mm trocar was placed in the suprapubic region and a 5 mm trocar was placed in the left lower quadrant. Appendix was located, it was very inflamed and almo st under the meso- appendix and mesentery. Had to carefully try and dissect it out; attempted at first to come across the base of the appendix, but this was too difficult. Elected to starte dissecting with the Ligasure towards tip of appendix and come across meso-appendix until appendix was only attached to the cecum. Visualized the terminal ileum and cecum; we were well away from both. Once at the base an Endo-HILDA 2.5 stapler was then fired across the base of the appendix. It was then placed in an Endobag and removed through the 12 mm trocar site. There were more adhesions and these were taken down with the ligasure. The abdomen was then irrigated and suctioned. No other pathology noted. The abdomen was then desufflated and the trocars were removed. The 0 Vicryl placed at the beginning of the case was then tied closing the 12 mm fascial defect. The skin was then closed using 4-0 Monocryl in a subcuticular fashion. The abdomen was then washed and dried and Skin Affix was placed over the incisions. The patient tolerated the procedure well without any compli- cations and was taken to the recovery room in stable condition. Anesthesia Type GET Estimated Blood Loss Estimated blood loss (mL): minimal Specimens/Packing Specimens Removed appendix CHARLENE HERNANDEZ DO May 18, 2022 11:46
[2022-05-18] MEDS ORDERED: ACHD5005 PO (11:47)
--- NOTE | 2022-05-18 11:49 | Discharge Inst-Surgical ---
Discharge Inst-Surgical Depart Medication/Instructions New, Converted or Re-Newed RX: Transmitted to Pharmacy Patient Instructions Follow up Appt: Make appointment for 1 week. [phone] Instructions: No lifting greater than 20 pounds. No strenuous activity. May shower in 24 hours, no tub bath or soaking. Use incentive spirometer at home as directed. No Smoking Skin/Wound Care: May remove bandages in am. You need to leave the Dermabond on incision it will fall off on it's own. Symptoms to Report: Appetite Changes, Extremity Discoloration, Numbness/Tingling, Swelling Increased, Bleeding Excessive, Eyesight Changes, Pain Increased, Urine Color Change, Constipation(Persistent), Fever over 101 degree F, Pain/Pressure in chest, Urinating Difficulty, Cough Up/Vomit Blood, Heart Beat Irreg/Pounding, Pain/Pressure in jaw, Cramps in feet or legs, Lightheadedness, Pain/Pressure in shoulder, Diarrhea(Persistent), Memory Changes Suddenly, Questions/Concerns, Weight gain consecutive days, Dizziness/Fainting, Nausea/Vomiting, Shortness of Breath, Weight gain over 2 pounds If questions or concerns contact your physician Or seek help at emergency department. Activity Activity as Tolerated: Yes Activity Instructions: Avoid Stress to Incision Driving Instructions: No Driving/Refer to Dr. Horvath Discharge Diet: No Restrictions Diet After 24 Hours: Clear Liquid if Nauseous If Any Problems/Questions/Issu: Contact Your Physician, Go to Emergency Room Skin/Wound Care Infection Signs and Symptoms: Increased Redness, Foul Odor of Wound, Increased Drainage, Skin Itchy or Has a Rash, Increased Swelling, Temperature Above 101 F Wound Care Comment: heating pad to shoulder or neck tonight for pain Bathing Instructions: Shower Stitches/[place]/Dermabond Dis: Dermabond Ice Pack: Ice On and Off Site CHARLENE HERNANDEZ DO May 18, 2022 11:49
--- NOTE | 2022-05-19 12:38 | Anesthesia-General Post-Op ---
General Patient Condition Mental Status/LOC: Same as Preop Cardiovascular: Satisfactory Nausea/Vomiting: Absent Respiratory: Satisfactory Pain: Controlled Complications: Absent Post Op Complications Complications None Follow Up Care/Instructions Patient Instructions None needed. Anesthesia/Patient Condition Patient Condition Patient is doing well, no complaints, stable vital signs, no apparent adverse anesthesia problems. No complications reported per nursing. LOYD ELDRIDGE CRNA May 19, 2022 12:38
[2022-05-23] MEDS ORDERED: IBUPROFEN 800 MG (MOTRIN) TAB PO SCH
== END 2022-05-18 14:46 | disposition home or self-care (01) ==
LOC: EDUNIT# 16:24 → ER FS 16:25 → 4TH 21:20 → UNDOADMIN 21:20 → SDC 21:20 → UNDODISIN 05-18 14:46
PROVIDERS: ATTEND Surgery
DX: K35.80 Unspecified acute appendicitis (principal); K66.0 Peritoneal adhesions (postprocedural) (postinfection); Z86.16 Personal history of COVID-19; I10 Essential (primary) hypertension; E11.9 Type 2 diabetes mellitus without complications; Z79.899 Other long term (current) drug therapy
CPT/HCPCS: 36415; 74177; 80053; 81000; 85025; 87081; 94760; 96374; 96375; 96376; Q9967